=== PATIENT | female | born 1995 | race Asian ===

== ENCOUNTER → 2024-11-19 09:28 | Outpatient (REF) | payer OTHER, SELFPAY ==
[2024-11-19 19:10] LABS: Rubella Positive
[2024-11-21 12:53] LABS: Quantiferon Mitogen minus NIL 9.55 IU/mL; Quantiferon NIL 0.45 IU/mL; Quantiferon Plus TB1 minus NIL 0.08 IU/mL (<=0.34); Quantiferon TB Gold Plus Negative (Negative)
== END ==
LOC: REG 09:28
PROVIDERS: ATTENDING PHYSICIAN Nurse Practitioner Family; FAMILY PHYSICIAN Nurse Practitioner Family
DX: Z23 Encounter for immunization (principal)
CPT/HCPCS: 36415; 86480; 86735; 86762; 86765; 86787

== ENCOUNTER → 2025-02-12 14:40 | Outpatient (REF) | payer OTHER, SELFPAY | LOC: RAD 14:40 | PROVIDERS: ATTENDING PHYSICIAN Nurse Practitioner Family | DX: M25.512 Pain in left shoulder (principal); M25.511 Pain in right shoulder | CPT/HCPCS: 73030 ==

== ENCOUNTER 2025-03-02 20:41 | Emergency (ER) | payer OTHER, SELFPAY ==
[2025-03-02 20:43] VITALS: BP 107/77
[2025-03-02 21:02] LABS: Urine Albumin 1+ (Neg - Trace); Urine Bilirubin Negative (Negative); Urine Character Clear (Clear); Urine Color Yellow; Urine Glucose Negative (Negative); Urine Ketone Negative (Negative); Urine Leukocyte 1+ (Negative); Urine Nitrite Negative (Negative); Urine Occult Blood 4+ (Negative); Urine Urobilinogen Negative (Neg - 1+)
[2025-03-02 21:17] VITALS: BP 113/73
[2025-03-02 21:18] VITALS: BMI 23.7
[2025-03-02] MEDS: NSS 1000 IV (21:36)
[2025-03-02] MEDS: TORADOL 15 MG IV (21:38)
[2025-03-02 21:48] LABS: Hematocrit 34.2 % (37.0-47.0); Hemoglobin 12.1 g/dL (12.0-16.0); Mean Corp Hgb Conc. 35.4 g/dL (33.0-37.0); Mean Corpuscular Hgb 31.8 pg (27.0-31.0); Mean Corpuscular Volume 89.8 fL (81.0-99.0); Mean Platelet Volume 9.5 fL (7.4-10.4); Platelet Count 198 10^3/uL (130-400); Red Blood Cell Count 3.81 10^6/uL (4.20-5.40); White Blood Cell Count 6.7 10^3/uL (4.8-10.8)
[2025-03-02 21:58] LABS: Urine Squamous Cell >30 /LPF (Few)
[2025-03-02 21:59] LABS: Urine Bacteria Few (Negative); Urine Red Blood Cell 16-20 /HPF (0-2)
[2025-03-02 22:00] VITALS: BP 112/71
[2025-03-02 22:04] LABS: COVID-19 Antigen Negative (Negative)
[2025-03-02 22:06] LABS: ALT (SGPT) 12 U/L (0-35); AST (SGOT) 18 U/L (14-36); Albumin 4.3 g/dl (3.5-5.0); Alkaline Phosphatase 41 U/L (38-126); Blood Urea Nitrogen 13 mg/dl (7-17); Calcium 8.7 mg/dl (8.4-10.2); Carbon Dioxide 23 mmol/L (22-30); Chloride 104 mmol/L (98-107); Estimated Creatinine Clearance 123 ml/min; Glucose 106 mg/dl (70-99); Potassium 3.9 mmol/L (3.5-5.1); Sodium 137 mmol/L (135-145); Total Bilirubin 0.4 mg/dl (0.2-1.3); Total Protein 6.8 g/dl (6.3-8.2); eGFR > 60.00
--- NOTE | 2025-03-02 22:50 | ED.GENMED ---
History of Present Illness
General
Chief Complaint: Fever
Time Seen by Provider: 03/02/25 21:17
History of Present Illness
History of Present Illness:
29-year-old female presents the emergency department for evaluation of 2 days of fever, sore throat, mild cough, and diffuse bodyaches. No nausea or vomiting. No ill contacts at home.
Past History
Past History
ED Past Medical History: None
ED Past Surgical History: None
Social History
Tobacco: Non-smoker
Review of Systems
Review of Systems
Allergies reviewed?: Yes
All Other Systems: ROS reviewed and negative except as documented in HPI and ROS
Phy Exam
Physical Exam
Physical Exam:
GEN: Well appearing, NAD, WDWN
HEENT: Oral mucosa moist, no scleral icterus, TMs clear bilaterally with no erythema. Oropharynx pink and moist with no erythema or exudates. No cervical adenopathy
Cardiac: Regular rate and rhythm, no murmurs
Lung: No respiratory distress, no tachypnea, lungs clear to auscultation bilaterally
MSK: No gross deformity or injuries
Skin: Good color, no pallor or jaundice, no rashes
Neuro: AO x3, moves all extremities freely
Psych: Calm, cooperative
Course
Orders/Labs/Results
Orders:
Orders
03/02/25 20:48
Urinalysis Reflex To Culture Urgent
Date Specimen was Collected: 03/02/25
Time Specimen was Collected: 20:45
Urine Microscopic Reflex Cult Urgent
Urine Culture Urgent
GREG Source: U
Specimen Description:
Date Specimen was Collected: 03/02/25
Time Specimen was Collected: 20:45
03/02/25 21:28
0.9% Sodium Chloride 1000 ml [Nss] 1,000 ml IV BOLUS
Ketorolac [Toradol] 15 mg IV NOW STA
03/02/25 21:30
COVID-19 Antigen Urgent
Source: Nasal Swab
Complete Blood Count/No Diff Urgent
Comprehensive Metabolic Panel Urgent
Influenza A+B Rapid Molecular Urgent
GREG Source: Nasal Swab
Specimen Description:
Abnormal Lab Results
03/02/25 03/02/25
20:48 21:30
RBC 3.81 L 10^6/uL
(4.20-5.40)
Hct 34.2 L %
(37.0-47.0)
MCH 31.8 H pg
(27.0-31.0)
Glucose 106 H mg/dl
(70-99)
Ur Occult Blood Reflex 4+ A
(Negative)
Leukocyte Esterase Rfl 1+ A
(Negative)
Urine RBC 16-20 A /HPF
(0-2)
Urine Bacteria (Reflex) Few A
(Negative)
Urine Albumin (Reflex) 1+ A
(Neg - Trace)
03/02/25 21:30
03/02/25 21:30
Vital Signs
Initial and Last Documented VS:
Initial Vital Signs
Temp Pulse Resp BP Pulse Ox
99.4 F 91 16 107/77 98
03/02/25 20:43 03/02/25 20:43 03/02/25 20:43 03/02/25 20:43 03/02/25 20:43
Last Documented Vital Signs
Temp Pulse Resp BP Pulse Ox
99.4 F 91 16 113/66 96
03/02/25 20:43 03/02/25 20:43 03/02/25 20:43 03/02/25 23:00 03/02/25 21:18
MDM/Problems Addressed
MDM/Problems Addressed:
Labs reassuring, patient positive for influenza B. Discussed supportive care and typical progression of symptoms. No indication for antivirals given that she is beyond 48-hour window and ultimately is a 29-year-old healthy female without
significant risk factors for complicated disease
*Critical Care Note
Total Time (30-74mins, 75-104mins- exclusive of procedures): Not Applicable
ED Attending Note
-
Portions of this chart may have been created with voice recognition software.� Occasional wrong word or��sound alike� substitutions may have occurred due to the inherent limitations of voice recognition software.
Discharge Plan
Departure
Patient Disposition: Home (Routine Discharge)
Date of Disposition: 03/02/25
Time of Disposition: 22:50
Patient with high blood pressure during this ER visit?: No
Discharge Problem:
Influenza B
Instructions: Flu in adults - ED discharge instructions
Prescriptions:
No Action
WesTab Plus 27 mg iron- 1 mg Tablet
1 tab PO ONCE Qty: 0 0RF
acetaminophen 325 mg Tablet
650 mg PO Q4HPRN PRN (Reason: mild pain) Qty: 0 0RF
sennosides-docusate sodium [Senna Plus] 8.6-50 mg Tablet
1 tab PO DAILYPRN PRN (Reason: constipation) Qty: 0 0RF
ibuprofen 600 mg Tablet
400 mg PO Q4HPRN PRN (Reason: moderate pain/cramps) Qty: 0 0RF
Referrals:
UNKNOWN - PT NOT,INTERVIEWE [Unknown Provider] -
Interventions
Interventions:
*Risk Screen - Suicide Last Done: 03/02/25 20:43
*General Assessment Last Done: 03/02/25 21:18
*Neglect/Abuse Screening Last Done: 03/02/25 20:43
*ED- Fall Risk Assessment Last Done: 03/02/25 21:18
*ED COVID-19 Vaccine History Last Done: 03/02/25 21:18
*Nursing Disposition Last Done: 03/02/25 23:15
ED- Neurological Assessment Last Done: 03/02/25 21:18
ED-Skin Assessment Last Done: 03/02/25 21:18
Discharge Date and Time
Discharge Date/Time: 03/02/25 23:15
Print Language: MONGOLIAN
[2025-03-02 23:00] VITALS: BP 113/66
== END 2025-03-02 23:15 | disposition home or self-care (01) ==
LOC: EMR 20:41
PROVIDERS: Emergency Medicine; Physician Assistant; EMERGENCY PHYSICIAN Emergency Medicine; FAMILY PHYSICIAN Nurse Practitioner Family
DX: J10.1 Influenza due to other identified influenza virus with other respiratory manifestations (principal)
CPT/HCPCS: 99283; 96374; 96361; 80053; 81003; 81015; 85027; 87086; 87502; 87811

== ENCOUNTER 2025-03-12 08:06 | Outpatient (RCR) | payer OTHER, SELFPAY | END 2025-03-12 23:59 | disposition home or self-care (01) | LOC: RPT 08:06 | PROVIDERS: ATTENDING PHYSICIAN Nurse Practitioner Family | DX: M25.511 Pain in right shoulder (principal); M25.512 Pain in left shoulder; Z73.6 Limitation of activities due to disability; M62.81 Muscle weakness (generalized); R51.9 Headache, unspecified | CPT/HCPCS: 97110; 97112; 97161 ==

== ENCOUNTER 2025-04-22 14:52 | Outpatient (RCR) | payer OTHER, SELFPAY | END 2025-04-22 23:59 | disposition home or self-care (01) | LOC: RPT 14:52 | PROVIDERS: ATTENDING PHYSICIAN Nurse Practitioner Family | DX: M25.511 Pain in right shoulder (principal); M25.512 Pain in left shoulder; Z73.6 Limitation of activities due to disability; M62.81 Muscle weakness (generalized); R51.9 Headache, unspecified | CPT/HCPCS: 97110; 97140 ==

== ENCOUNTER 2025-05-14 13:31 | Outpatient (RCR) | payer OTHER, SELFPAY | END 2025-05-14 23:59 | disposition home or self-care (01) | LOC: RPT 13:31 | PROVIDERS: ATTENDING PHYSICIAN Nurse Practitioner Family | DX: M25.511 Pain in right shoulder (principal); M25.512 Pain in left shoulder; Z73.6 Limitation of activities due to disability; M62.81 Muscle weakness (generalized); R51.9 Headache, unspecified | CPT/HCPCS: 97010; 97110; 97140 ==